=== PATIENT | female | born 1945 | race Caucasian/White ===

== ENCOUNTER → 2018-06-26 | Outpatient (CLI) | payer MEDICARE ==
[~2018-06-26] MED LIST: BONE STRENGTH PO; CAYE450C4 PO; CHRO1000 PO; CYAN10005 PO; GARL100T PO; KELP1TAB PO; POTA99TA8 PO; RUTI500T PO; VITA1CAP PO; ZINC50TA40 PO; [UNRECOGNIZED DRUG - CODE] PO; [UNRECOGNIZED DRUG - OTHER] PO; [UNRECOGNIZED DRUG - OTHER] PO
== END | disposition home or self-care (01) ==
LOC: STAR 13:57
PROVIDERS: ATTEND Surgery
DX: Z01.812 Encounter for preprocedural laboratory examination (principal); N63.20 Unspecified lump in the left breast, unspecified quadrant; I44.4 Left anterior fascicular block
CPT/HCPCS: 93005

== ENCOUNTER 2018-07-05 09:52 | Day surgery (SDC) | payer MEDICARE ==
[~2018-07-05] VITALS: Ht 157.5 cm; Wt 53.4 kg
[2018-07-05] MEDS ORDERED: LACTATED RINGERS 1,000 ML IV SCH (10:18)
[2018-07-05] MEDS ORDERED: GABAPENTIN 300 MG CAPSULE PO ONE (10:30)
[2018-07-05] MEDS ORDERED: ACETAMINOPHEN 500 MG TABLET PO ONE (10:30)
[2018-07-05] MEDS ORDERED: ONDANSETRON ODT 8 MG PO ONE (10:30)
[2018-07-05] MEDS ORDERED: SCOPOLAMINE PATCH, 1.5MG PATCH.TD72 TD ONE (10:30)
[2018-07-05] MEDS ORDERED: BUPIVACAINE/PF-EPI 0.5% 1:200K ONE (10:34)
[2018-07-05 10:40] VITALS: BP 148/80
[2018-07-05] MEDS ORDERED: PROPOFOL 50 ML ONE (11:54)
[2018-07-05] MEDS ORDERED: FENTANYL PF 250 MCG/5ML ONE (11:54)
[2018-07-05] MEDS ORDERED: MIDAZOLAM 1 MG/ML, 2ML ONE (11:54)
[2018-07-05] MEDS ORDERED: CEFAZOLIN 1,000 MG ONE (12:07)
[2018-07-05] MEDS ORDERED: ACETAMINOPHEN 325 MG TABLET PO PRN (12:30)
[2018-07-05] MEDS ORDERED: MORPHINE SULFATE 4 MG/ML, 1ML IVPush PRN (12:30)
[2018-07-05] MEDS ORDERED: EPHEDRINE 50 MG/ML, 1ML IVPush PRN (12:30)
[2018-07-05] MEDS ORDERED: PROMETHAZINE 25 MG/ML, 1ML IV PRN (12:30)
[2018-07-05] MEDS ORDERED: PROMETHAZINE 12.5 MG SUPP PR PRN (12:30)
[2018-07-05] MEDS ORDERED: LABETALOL 5MG/ML, 20ML IV PRN (12:30)
[2018-07-05] MEDS ORDERED: FENTANYL PF 100 MCG/2ML IV PRN (12:30)
[2018-07-05] MEDS ORDERED: ONDANSETRON 2MG/ML, 2ML IV PRN (12:30)
[2018-07-05] MEDS ORDERED: MIDAZOLAM 1 MG/ML, 2ML IV PRN (12:30)
[2018-07-05] MEDS ORDERED: OXYcodone 5 MG/5 ML ORAL.SOL UDC PO PRN (12:30)
[2018-07-05] MEDS ORDERED: ONDANSETRON ODT 8 MG PO PRN (12:30)
[2018-07-05] MEDS ORDERED: EPHEDRINE 50 MG/ML, 1ML IM PRN (12:30)
[2018-07-05] MEDS ORDERED: PROMETHAZINE 25 MG SUPP PR PRN (12:30)
== END 2018-07-05 14:30 | disposition home or self-care (01) ==
LOC: OUT 09:52
PROVIDERS: ATTEND Surgery
DX: C50.012 Malignant neoplasm of nipple and areola, left female breast (principal); Z17.0 Estrogen receptor positive status [ER+]; Z88.0 Allergy status to penicillin; Z88.2 Allergy status to sulfonamides; Z79.899 Other long term (current) drug therapy; Z98.51 Tubal ligation status; Z98.49 Cataract extraction status, unspecified eye; Z98.890 Other specified postprocedural states
CPT/HCPCS: 19120; 88305; 88341; 88342; 88360; J0690; J2250; J2704; J3010; J7120; Q0162

== ENCOUNTER 2018-07-12 10:07 | Outpatient (CLI) | payer MEDICARE ==
[2018-07-12] MEDS ORDERED: GADOBUTROL 7.5 MMOL/7.5 ML VIAL ONE (11:14)
== END 2018-07-12 23:59 | disposition home or self-care (01) ==
LOC: CFH 10:07
PROVIDERS: ATTEND Surgery
DX: C50.112 Malignant neoplasm of central portion of left female breast (principal)
CPT/HCPCS: 77049; 82565; A9585

== ENCOUNTER 2018-07-20 13:34 | Day surgery (SDC) | payer MEDICARE ==
[~2018-07-20] VITALS: Ht 157.5 cm; Wt 52.9 kg
[2018-07-20] MEDS ORDERED: ONDANSETRON ODT 8 MG PO ONE (14:00)
[2018-07-20] MEDS ORDERED: GABAPENTIN 300 MG CAPSULE PO ONE (14:00)
[2018-07-20] MEDS ORDERED: ACETAMINOPHEN 500 MG TABLET PO ONE (14:00)
[2018-07-20] MEDS ORDERED: SCOPOLAMINE PATCH, 1.5MG PATCH.TD72 TD ONE (14:00)
[2018-07-20 14:02] VITALS: BP 121/83
[2018-07-20] MEDS ORDERED: LACTATED RINGERS 1,000 ML IV SCH (14:07)
[2018-07-20] MEDS ORDERED: FENTANYL PF 250 MCG/5ML ONE (16:10)
[2018-07-20] MEDS ORDERED: BUPIVACAINE/PF-EPI 0.5% 1:200K ONE (17:32)
[2018-07-20] MEDS ORDERED: ISOSULFAN BLUE 10 MG/ML, 5ML IV ONE (17:32)
[2018-07-20] MEDS ORDERED: ROCURONIUM 10MG/ML,5ML ONE (17:46)
[2018-07-20] MEDS ORDERED: DEXAMETHASONE 4 MG/ML, 1ML ONE (17:46)
[2018-07-20] MEDS ORDERED: CEFAZOLIN 1,000 MG ONE (17:46)
[2018-07-20] MEDS ORDERED: ONDANSETRON 2MG/ML, 2ML ONE (17:46)
[2018-07-20] MEDS ORDERED: BUPIVACAINE/PF-EPI 0.5% 1:200K INFIL ONE (18:13)
[2018-07-20] MEDS ORDERED: hydrALAzine 20 MG/ML, 1ML IV PRN (18:30)
[2018-07-20] MEDS ORDERED: PROCHLORPERAZINE 5 MG/ML, 2ML IV PRN (18:30)
[2018-07-20] MEDS ORDERED: LABETALOL 5MG/ML, 20ML IV PRN (18:30)
[2018-07-20] MEDS ORDERED: FENTANYL PF 100 MCG/2ML IV PRN (18:30)
[2018-07-20] MEDS ORDERED: METOPROLOL 1 MG/ML, 5ML IV PRN (18:30)
[2018-07-20] MEDS ORDERED: HYDROmorphone 2 MG/ML, 1ML IVPush PRN (18:30)
[2018-07-20] MEDS ORDERED: MEPERIDINE/PF 25MG/0.5ML IVPush PRN (18:30)
[2018-07-20] MEDS ORDERED: PROMETHAZINE 25 MG/ML, 1ML IV PRN (18:30)
[2018-07-20] MEDS ORDERED: EPHEDRINE 50 MG/ML, 1ML IM PRN (18:30)
[2018-07-20] MEDS ORDERED: DIPHENHYDRAMINE 50 MG/ML, 1ML IVPush PRN (18:30)
[2018-07-20] MEDS ORDERED: OXYcodone 5 MG/5 ML ORAL.SOL UDC PO PRN (18:30)
== END 2018-07-20 20:42 | disposition home or self-care (01) ==
LOC: SDC 13:34 → EDSTATUS 16:00 → SDC 20:42
PROVIDERS: ATTEND Surgery
DX: D05.12 Intraductal carcinoma in situ of left breast (principal); R59.1 Generalized enlarged lymph nodes; Z79.899 Other long term (current) drug therapy; Z98.890 Other specified postprocedural states; Z98.51 Tubal ligation status; Z88.1 Allergy status to other antibiotic agents; Z88.0 Allergy status to penicillin; Z98.49 Cataract extraction status, unspecified eye; Z72.89 Other problems related to lifestyle
CPT/HCPCS: 19301; 38525; 38792; 88307; 88329; 88331; A9541; C1729; J0690; J1100; J2405; J3010; J7120; Q0162

== ENCOUNTER → 2018-07-30 | Outpatient (CLI) | payer MEDICARE | END | disposition home or self-care (01) | LOC: ROC 07:35 → EDSTATUS 16:23 | PROVIDERS: ATTEND Radiology Radiation Oncology | DX: C50.112 Malignant neoplasm of central portion of left female breast (principal) | CPT/HCPCS: 99214; G0463 ==

== ENCOUNTER 2018-09-28 07:23 | Outpatient (CLI) | payer MEDICARE | END 2018-09-28 23:59 | disposition home or self-care (01) | LOC: ROC 07:23 → EDSTATUS 07-09 17:23 | PROVIDERS: ATTEND Radiology Radiation Oncology | DX: Z08 Encounter for follow-up examination after completed treatment for malignant neoplasm (principal); C50.112 Malignant neoplasm of central portion of left female breast; Z88.0 Allergy status to penicillin; Z88.2 Allergy status to sulfonamides | CPT/HCPCS: 99213; G0463 ==

== ENCOUNTER → 2018-10-12 | Outpatient (CLI) | payer MEDICARE ==
[~2018-10-12] MED LIST changes: +ANAS1TAB PO; +CALC500T93 PO
[2018-10-12 14:27] LABS: BASOPHILS # (AUTO) 0.02 x10^3/uL (0-0.1); BASOPHILS % (AUTO) 0 % (0-1); EOSINOPHILS # (AUTO) 0.04 x10^3/uL (0-0.4); EOSINOPHILS % (AUTO) 1 % (1-7); LYMPHOCYTES # (AUTO) 1.36 x10^3/uL (1-3.4); LYMPHOCYTES % (AUTO) 29 % (22-44); MD NO; MEAN CORPUSCULAR HEMOGLOBIN 29.9 pg (27.0-34.8); MEAN CORPUSCULAR VOLUME 87.8 fL (80-100); MEAN PLATELET VOLUME 7.1 fL (7.4-10.4); MONOCYTES # (AUTO) 0.51 x10^3/uL (0.2-0.8); MONOCYTES % (AUTO) 11 % (2-9); NEUTROPHILS # (AUTO) 2.75 x10^3/uL (1.8-6.8); NEUTROPHILS % (AUTO) 59 % (42-75); PLATELET COUNT 207 x10^3/uL (130-400); RED BLOOD COUNT 5.13 x10^6/uL (3.82-5.3); RED CELL DISTRIBUTION WIDTH 13.2 % (9.6-15.2)
[2018-10-12 14:32] LABS: ANION GAP 6 mmol/L (5-15); CALCIUM 9.1 mg/dL (8.5-10.1); CHLORIDE 110 mmol/L (98-107); CREATININE 0.72 mg/dL (0.55-1.02); INTERNATIONAL NORMALIZED RATIO 1.04 (0.93-1.1); PROTHROMBIN TIME 10.9 Seconds (9.6-11.5)
== END | disposition home or self-care (01) ==
LOC: STAR 13:05
PROVIDERS: ATTEND Neurological Surgery
DX: Z01.818 Encounter for other preprocedural examination (principal); I44.4 Left anterior fascicular block; D36.10 Benign neoplasm of peripheral nerves and autonomic nervous system, unspecified
CPT/HCPCS: 36415; 80048; 85025; 85610; 85730; 93005

== ENCOUNTER 2018-10-25 05:30 | Day surgery (SDC) | payer MEDICARE ==
[~2018-10-25] VITALS: Ht 157.5 cm; Wt 53.0 kg
[2018-10-25] MEDS ORDERED: LACTATED RINGERS 1,000 ML IV SCH (06:10)
[2018-10-25 06:14] VITALS: BP 143/87
[2018-10-25] MEDS ORDERED: BUPIVACAINE/EPI 0.5% 1:200K ONE (06:50)
[2018-10-25] MEDS ORDERED: BACITRACIN 50,000 UNIT ONE (06:50)
[2018-10-25] MEDS ORDERED: FENTANYL PF 250 MCG/5ML ONE (06:53)
[2018-10-25] MEDS ORDERED: DEXAMETHASONE 4 MG/ML, 1ML ONE (06:54)
[2018-10-25] MEDS ORDERED: PROPOFOL 10 MG/ML, 20ML ONE (06:54)
[2018-10-25] MEDS ORDERED: ROCURONIUM 10MG/ML,5ML ONE (06:54)
[2018-10-25] MEDS ORDERED: CEFAZOLIN 1,000 MG ONE (06:54)
[2018-10-25] MEDS ORDERED: ONDANSETRON 2MG/ML, 2ML ONE (06:54)
[2018-10-25] MEDS ORDERED: SUCCINYLCHOLINE 20 MG/ML, 10ML ONE (06:54)
[2018-10-25] MEDS ORDERED: GLYCOPYRROLATE 0.2MG/1ML, 5ML ONE (06:54)
[2018-10-25] MEDS ORDERED: PROPOFOL 100 ML ONE (06:54)
[2018-10-25] MEDS ORDERED: NEOSTIGMINE 1 MG/ML, 10ML ONE (06:54)
[2018-10-25] MEDS ORDERED: ACETAMINOPHEN 500 MG TABLET PO ONE (07:00)
[2018-10-25] MEDS ORDERED: GABAPENTIN 300 MG CAPSULE PO ONE (07:00)
[2018-10-25] MEDS ORDERED: LIDOCAINE PF 2%, 5ML ONE (07:05)
[2018-10-25] MEDS ORDERED: EPHEDRINE 50 MG/ML, 1ML ONE (07:05)
[2018-10-25] MEDS ORDERED: FENTANYL PF 100 MCG/2ML IV PRN (07:30)
[2018-10-25] MEDS ORDERED: HYDROmorphone 2 MG/ML, 1ML IVPush PRN (07:30)
[2018-10-25] MEDS ORDERED: ONDANSETRON ODT 8 MG PO PRN (07:30)
[2018-10-25] MEDS ORDERED: ONDANSETRON 2MG/ML, 2ML IV PRN (07:30)
[2018-10-25] MEDS ORDERED: PROMETHAZINE 25 MG/ML, 1ML IV PRN (07:30)
[2018-10-25] MEDS ORDERED: DIAZEPAM 5 MG/ML, 2ML IVPush PRN (07:30)
[2018-10-25] MEDS ORDERED: OXYcodone 5 MG/5 ML ORAL.SOL UDC PO PRN (07:30)
[2018-10-25] MEDS ORDERED: FENTANYL PF 100 MCG/2ML ONE (08:06)
[2018-10-25] MEDS ORDERED: THROMBIN 20,000 UNIT VIAL TP ONE ×2 (09:14→09:52)
[2018-10-25] MEDS ORDERED: OXYcodone 5 MG/5 ML ORAL.SOL UDC ONE ×2 (10:00→10:01)
[2018-10-25] MEDS ORDERED: HYDROmorphone 1 MG/ML, 1ML VIAL ONE (10:20)
== END 2018-10-25 11:50 | disposition home or self-care (01) ==
LOC: OUT 05:30
PROVIDERS: ATTEND Neurological Surgery
DX: D36.10 Benign neoplasm of peripheral nerves and autonomic nervous system, unspecified (principal); Z79.899 Other long term (current) drug therapy; Z98.890 Other specified postprocedural states; Z87.39 Personal history of other diseases of the musculoskeletal system and connective tissue; Z85.3 Personal history of malignant neoplasm of breast; Z98.51 Tubal ligation status; Z88.0 Allergy status to penicillin; Z88.8 Allergy status to other drugs, medicaments and biological substances; Z72.89 Other problems related to lifestyle
CPT/HCPCS: 64792; 88305; 88331; 95938; 95941; J0330; J0690; J1100; J1170; J2405; J2704; J2710; J3010; J3490; J7120

== ENCOUNTER → 2020-05-19 | Outpatient (CLI) | payer MEDICARE ==
[~2020-05-19] MED LIST changes: +CYAN-27 PO; -CYAN10005 PO; +KELP PO; +LUTEIN PO; +VITA100C8 PO; +VITAMIN C PO; +ZINC PO
[2020-05-19 13:37] LABS: BASOPHILS % (AUTO) 1 % (0-1); EOSINOPHILS % (AUTO) 1 % (1-7); LYMPHOCYTES % (AUTO) 29 % (22-44); MEAN CORPUSCULAR HEMOGLOBIN 29.1 pg (27.0-34.8); MEAN CORPUSCULAR HGB CONC 32.5 g/dL (32.4-35.8); MEAN PLATELET VOLUME 7.6 fL (7.4-10.4); MONOCYTES % (AUTO) 10 % (2-9); NEUTROPHILS % (AUTO) 59 % (42-75); PLATELET COUNT 230 x10^3/uL (130-400); RED BLOOD COUNT 5.08 x10^6/uL (3.82-5.3); RED CELL DISTRIBUTION WIDTH 13.7 % (9.6-15.2)
[2020-05-19 13:47] LABS: MD NO
[2020-05-19 13:50] LABS: INTERNATIONAL NORMALIZED RATIO 1.04 (0.93-1.1)
[2020-05-19 13:53] LABS: CREATININE 0.77 mg/dL (0.55-1.02)
[2020-05-19 13:59] LABS: ANION GAP 4 mmol/L (5-15); CHLORIDE 106 mmol/L (98-107)
== END | disposition home or self-care (01) ==
LOC: STAR 12:36
PROVIDERS: ATTEND Neurological Surgery
DX: Z01.818 Encounter for other preprocedural examination (principal); R22.41 Localized swelling, mass and lump, right lower limb; I45.10 Unspecified right bundle-branch block
CPT/HCPCS: 36415; 80048; 85025; 85610; 85730; 93005

== ENCOUNTER → 2020-05-28 | Outpatient (CLI) | payer MEDICARE | END | disposition home or self-care (01) | LOC: STAR 14:17 | PROVIDERS: ATTEND Anesthesiology | DX: Z20.828 Contact with and (suspected) exposure to other viral communicable diseases (principal) | CPT/HCPCS: 87635 ==

== ENCOUNTER 2020-06-02 06:09 | Day surgery (SDC) | payer MEDICARE ==
[~2020-06-02] VITALS: Ht 154.9 cm; Wt 54.0 kg
[2020-06-02] MEDS ORDERED: BACITRACIN 50,000 UNIT ONE (06:52)
[2020-06-02] MEDS ORDERED: EPINEPHRINE 1 MG/ML, 1ML ONE (06:52)
[2020-06-02] MEDS ORDERED: BUPIVACAINE/PF 0.5% ONE (06:52)
[2020-06-02 07:12] VITALS: BP 146/84
[2020-06-02] MEDS ORDERED: CHLORHEXIDINE 15 ML UDC ONE (07:17)
[2020-06-02] MEDS ORDERED: CHLORHEXIDINE 15 ML UDC MM ONE (07:30)
[2020-06-02] MEDS ORDERED: LACTATED RINGERS 1,000 ML IV SCH (07:30)
[2020-06-02] MEDS ORDERED: FENTANYL PF 250 MCG/5ML ONE (07:57)
[2020-06-02] MEDS ORDERED: PROPOFOL 50 ML ONE (07:58)
[2020-06-02] MEDS ORDERED: DEXAMETHASONE 4 MG/ML, 1ML ONE (09:21)
[2020-06-02] MEDS ORDERED: ONDANSETRON 2MG/ML, 2ML ONE (09:21)
[2020-06-02] MEDS ORDERED: CEFAZOLIN 1,000 MG ONE (09:21)
[2020-06-02] MEDS ORDERED: PROPOFOL 10 MG/ML, 20ML ONE (09:21)
[2020-06-02] MEDS ORDERED: KETOROLAC 30 MG/1 ML ONE (09:21)
[2020-06-02] MEDS ORDERED: LABETALOL 5MG/ML, 20ML IV PRN (09:30)
[2020-06-02] MEDS ORDERED: MEPERIDINE/PF 25MG/0.5ML IVPush PRN (09:30)
[2020-06-02] MEDS ORDERED: FENTANYL PF 100 MCG/2ML IV PRN (09:30)
[2020-06-02] MEDS ORDERED: hydrALAzine 20 MG/ML, 1ML IV PRN (09:30)
[2020-06-02] MEDS ORDERED: OXYcodone 5 MG/5 ML ORAL.SOL UDC PO PRN (09:30)
[2020-06-02] MEDS ORDERED: PROMETHAZINE 25 MG/ML, 1ML IVPush PRN (09:30)
[2020-06-02] MEDS ORDERED: ALBUTEROL SULFATE 2.5 MG/3 ML NPPB PRN (09:30)
[2020-06-02] MEDS ORDERED: MIDAZOLAM 1 MG/ML, 2ML IV PRN (09:30)
[2020-06-02] MEDS ORDERED: ACETAMINOPHEN 325 MG TABLET PO PRN (09:30)
[2020-06-02] MEDS ORDERED: HYDROmorphone 1 MG/ML, 1ML INJ IVPush PRN (09:30)
[2020-06-02] MEDS ORDERED: EPHEDRINE 50 MG/ML, 1ML ONE (10:24)
== END 2020-06-02 11:59 | disposition home or self-care (01) ==
LOC: OUT 06:09
PROVIDERS: ATTEND Neurological Surgery
DX: D36.13 Benign neoplasm of peripheral nerves and autonomic nervous system of lower limb, including hip (principal); M81.0 Age-related osteoporosis without current pathological fracture; Z79.899 Other long term (current) drug therapy; Z85.3 Personal history of malignant neoplasm of breast; Z88.0 Allergy status to penicillin; Z88.2 Allergy status to sulfonamides; Z90.12 Acquired absence of left breast and nipple; Z98.890 Other specified postprocedural states; Z82.49 Family history of ischemic heart disease and other diseases of the circulatory system
CPT/HCPCS: 64792; 88305; 88331; 95938; 95941; J0171; J0690; J1100; J1885; J2405; J2704; J3010; J7120